=== PATIENT | female | born 1965 | race Caucasian/White ===

== ENCOUNTER 2024-06-10 10:03 | Day surgery (SDC) | payer MEDICARE, SELFPAY ==
[2024-06-10] VITALS (11 sets, daily range): BP systolic 102–158; BP diastolic 53–91; PULSE 65–85; RESP 12–22; TEMP 36.3–36.8; O2SAT 91–100; BMI 41.8
[2024-06-10] MEDS: SODIUM CHLORIDE 0.9 % (FLUSH) 10 ML SYRINGE IVF (10:20)
[2024-06-10] MEDS: LACTATED RINGERS 1000 ML 1,000 ML 100 ML IV ×2 (10:20→12:33)
--- NOTE | 2024-06-10 11:45 | W.ANESCHARGE ---
Anesthesia Charges Start Date/Time Anesthesia Start Date: 06/10/24 Anesthesia Start Time: 11:57 Stop Date/Time Anesthesia Stop Date: 06/10/24 Anesthesia Stop Time: 13:40
[2024-06-10] MEDS: CEFAZOLIN 2 GM INJ IVP (12:10)
--- NOTE | 2024-06-10 12:42 | W.ANESCHARGE ---
Anesthesia Charges Start Date/Time Anesthesia Start Date: 06/10/24 Anesthesia Start Time: 11:57 Stop Date/Time Anesthesia Stop Date: 06/10/24 Anesthesia Stop Time: 13:40
[2024-06-10] MEDS: OxyCODONE/APAP 5-325 TABLET 2 TAB PO (13:33)
--- NOTE | 2024-06-10 13:46 | P.ORPRC_ITS ---
Procedure Note Date of procedure: 06/10/24 Procedure: PREOPERATIVE DIAGNOSIS: Right knee medial meniscus root tear POSTOPERATIVE DIAGNOSIS: Right knee medial meniscus root tear NAME OF OPERATION: Right knee arthroscopic medial meniscus root repair, microfracture of the notch SURGEON: Rivas Love MD [employer] CHAIR: Mari Ingram PA-C ANESTHESIA: Spinal ESTIMATED BLOOD LOSS: 0 mL COMPLICATIONS: None SPECIMENS: None DRAINS: None PREOPERATIVE ANTIBIOTICS: Ancef 2 gram INDICATIONS: The patient is a 59-year-old female with a history of right knee medial pain. MRI scan is consistent with a medial meniscus root tear. Despite appropriate nonoperative management, including activity modification, antiinflammatories, [id number] pain medication, bracing, physical therapy, and injections they continue to have pain and disability. Operative intervention was offered. The risks, benefits and expected outcomes were discussed in detail. These included but were not limited to: Infection, bleeding, injury to blood vessel or nerve, venous thromboembolism. All questions were answered to their satisfaction. PROCEDURE: Spinal anesthesia was administered. The patient was placed supine on the operating room table. The right lower extremity was prepped and draped in the usual sterile fashion. The limb was exsanguinated with the Kalyan bandage. The pneumatic tourniquet was inflated to 300 mmHg. A standard anterolateral portal was established. The arthroscope was introduced. The working portal was established anteromedially. Diagnostic arthroscopy was performed with findings as follows: The suprapatellar pouch is normal. Articular surface on the patella shows diffuse grade 2 change. Articular surface on the trochlea shows diffuse grade 2, focal grade 3 change distally. The medial gutter is normal. The medial compartment shows diffuse grade 3 change on the medial femoral condyle, grade 2 change on the medial tibial plateau. The medial meniscus has a root tear of the posterior horn. The notch shows the ACL to be intact. The lateral compartment shows normal articular cartilage on the lateral femoral condyle and lateral tibial plateau. The lateral meniscus is normal. The lateral gutter is normal. The shaver was used to debride the leading edge of the tear of the posterior root. Unstable chondral flaps on the medial femoral condyle were debrided with the shaver through both portals, taken to a stable base. The knee scorpion was used to pass a fiber link x 2 in the posterior horn of the medial meniscus. The tibial drill guide was used over the footprint of the root. A longitudinal incision over the anteromedial face of the tibia was placed. The flip cutter was drilled into the footprint. The flip cutter was flipped and back cut 10 mm. It was removed and exchanged for a fiber stick. The fiber stick was brought out the anteromedial portal and was used to shuttle both of the fiber link luggage tag sutures on the posterior horn out the anteromedial tibia. We then tensioned the sutures and fixed them to the tibia with a SwiveLock anchor. This provided an excellent repair of the posterior tibial attachment of the medial meniscus to its anatomic footprint. The power pick was used to microfracture the notch both medially and laterally. Arthroscopic instruments were removed, the portal sites were Steri-Stripped closed, the incision over the tibia was closed with 3-0 Vicryl and 4-0 Monocryl. A dry dressing was applied, the tourniquet was released. Sponge and needle counts were correct x 2. The patient tolerated the procedure well. There were no apparent complications. They were carefully transferred to the hospital bed and taken to the postanesthesia care unit in satisfactory condition. PLAN: The patient will be discharged to home. They will be strict nonweightbearing on the lower extremity for 6 weeks postoperatively. Range of motion will be allowed from 0-90 degrees x 2 weeks then unrestricted range of motion. They will follow up in 2 weeks for a wound check.
--- NOTE | 2024-06-10 13:57 | P.NB_ITS ---
Nerve Block Nerve Block Time Seen by Provider: 13:35 Date Seen: 06/10/24 Type of block requested by surgeon for post-operative analgesia: geniculars Side: right Time out performed: Yes Verification of patient name: Yes Verification of date of : Yes Name of person performing procedure: Rhianna Levine Continuous monitoring Was continuous monitoring of O2 sat, B/P, litigation examiner, recorded every 15 minutes?: Yes Procedure Checklist: sterile prep, needles and gloves Ultrasound guided. Images saved: No Medications given in 5ml increments after negative aspiration: Ropivicaine %: 0.5 mL: 15 Decadron (mg): 10 Precedex (mcg): 25 Patient tolerated procedure well: Yes Block Charges Block Charge (with Pro Fee): Genicular Nerve Block Use of Ultrasound Machine for Block: No
== END 2024-06-10 15:08 | disposition home or self-care (01) ==
LOC: OR 10:04
PROVIDERS: Visit Provider Orthopaedic Surgery
PROC: (CPT 29882; principal; 2024-06-10 11:45)
DX: M23.221 Derangement of posterior horn of medial meniscus due to old tear or injury, right knee (principal); G89.18 Other acute postprocedural pain
CPT/HCPCS: 29882; 29879; 01400; 64454; A9270; C1713; J0690; J2250; J2405; J2704; J7120